=== PATIENT | female | born 1955 | race Caucasian/White ===

== ENCOUNTER 2019-08-30 13:22 | Emergency (ER) | payer OTHER ==
[~2019-08-30] VITALS: Ht 162.6 cm; Wt 83.1 kg
[~2019-08-30 13:22] MED LIST: ALBU8.5H8 INH; HYDR25TA6 PO; LOSA50TA14 PO; PRED20TA PO; [UNRECOGNIZED DRUG - REMARK]
[2019-08-30 13:28] VITALS: Ht 162.6 cm; Wt 83.1 kg
[2019-08-30] MEDS ORDERED: ALBUTEROL 0.083% (NEB) 2.5 MG/3 ML AMP HHN STA (13:52)
[2019-08-30] MEDS ORDERED: DEXAMETHASONE 10 MG/ML 1 ML INJ IM ONE (14:00)
[2019-08-30] MEDS ORDERED: IPRATROPIUM (NEB) 0.5 MG/2.5 ML AMP HHN ONE (14:00)
[2019-08-30 15:14] VITALS: BP 150/74; PULSE 79; RESP 18
== END 2019-08-30 15:17 | disposition home or self-care (01) ==
LOC: FTE 13:22
DX: J45.901 Unspecified asthma with (acute) exacerbation (principal); I10 Essential (primary) hypertension
CPT/HCPCS: 71045; 94644; 96372; 99284; J1100